=== PATIENT | female | born 1970 ===

== ENCOUNTER 2024-09-30 09:31 | Day surgery (SDC) | payer OTHER ==
[~2024-09-30 09:31] MED LIST: Midazolam 1 MG/ML 2 ML SDV ONE; Propofol 200 MG/20 ML SDV ONE; Sodium Chloride 0.9% 10 ML Syringe FLUSH PRN
[2024-09-30] MEDS: Lactated Ringers 1,000 ML IV SCH (09:41)
[2024-09-30] MEDS ORDERED: Ondansetron 4 MG/2 ML SDV IVPUSH ONE (10:55)
[2024-09-30] MEDS ORDERED: Propofol 200 MG/20 ML SDV ONE (11:34)
== END 2024-09-30 12:18 | disposition home or self-care (01) ==
LOC: LL.SDS 09:31
PROVIDERS: ATTEND Surgery
DX: Z12.11 Encounter for screening for malignant neoplasm of colon (principal); I10 Essential (primary) hypertension; E66.01 Morbid (severe) obesity due to excess calories; E66.813 Obesity, class 3; Z68.42 Body mass index [BMI] 45.0-49.9, adult; F32.9 Major depressive disorder, single episode, unspecified; Z79.899 Other long term (current) drug therapy; Z88.8 Allergy status to other drugs, medicaments and biological substances
CPT/HCPCS: 45378; J2250; J2405; J2704; J7120; 00812